=== PATIENT | male | born 1950 | race African-American/Black ===

== ENCOUNTER 2019-02-13 11:34 | Outpatient (RCR) | payer MEDICARE | END 2019-03-04 | disposition home or self-care (01) | LOC: WCC 11:34 | DX: L97.823 Non-pressure chronic ulcer of other part of left lower leg with necrosis of muscle (principal); R22.42 Localized swelling, mass and lump, left lower limb; I11.9 Hypertensive heart disease without heart failure; I25.10 Atherosclerotic heart disease of native coronary artery without angina pectoris; M06.9 Rheumatoid arthritis, unspecified; Z79.82 Long term (current) use of aspirin; Z79.899 Other long term (current) drug therapy | CPT/HCPCS: 11043; 97605 ==